=== PATIENT | female | born 1940 | race Caucasian/White ===

== ENCOUNTER 2017-07-18 07:06 | Day surgery (SDC) | payer MEDICARE, BC ==
[~2017-07-18 07:06] MED LIST: BUPIVACAINE HCL 0.75% INJ/PF (7.5 MG/1 ML) 10 ML SDV OS PRN; KETOROLAC TROMETHAMINE 0.45% 4 DROP/0.4 ML DROPERETTE OS PRN; LIDOCAINE 4% INJ/PF (40 MG/ML) 5 ML AMPUL OS PRN
[2017-07-18] MEDS ORDERED: EPINEPHRINE INJ/PF 1 MG/1 ML AMPULE ONE (07:42)
[2017-07-18] MEDS ORDERED: CHONDR SU A NA/HYALUR INTRAOC KIT (SURGICARE) ONE (07:42)
[2017-07-18] MEDS ORDERED: LIDOCAINE 1% INJ-PF (10 MG/ML) 30 ML SDV ONE (07:43)
[2017-07-18] MEDS: CYCLOPENTOLATE 0.2%/PHENYLEPHRINE 1% OPH SOLN 2 ML OS PRN ×3 (07:48→08:08)
[2017-07-18] MEDS: BESIFLOXACIN HCL 0.6% OPH SUSP 5 ML BOTTLE OS PRN ×5 (07:48→09:00)
[2017-07-18] MEDS: TROPICAMIDE 1% OPH SOLN 3 ML OS PRN ×3 (07:48→08:08)
[2017-07-18] MEDS: TETRACAINE HCL 0.5% OPH SOLN 0.6 ML DROPERETTE OS PRN ×2 (07:49→08:08)
[2017-07-18] MEDS ORDERED: MIDAZOLAM 2 MG/2 ML INJ ONE (08:06)
--- NOTE | 2017-07-18 09:10 | [facility] OPERATIVE REPORT E ---
[facility] Operative Report NAME: GABRIELLA SMALLWOOD AGE: 77Y DATE OF SURGERY: 07/18/2017 ROOM: PREOPERATIVE DIAGNOSIS: Cataract, left eye. POSTOPERATIVE DIAGNOSIS: Cataract, left eye. PROCEDURE PERFORMED: Phacoemulsification with posterior chamber intraocular lens, left eye. SURGEON: FATOU FRAUSTO M.D. ANESTHESIA: Topical with MAC. INDICATIONS FOR SURGERY: Difficulty reading small print and seeing TV. Best corrected visual acuity 20/60. PROCEDURE: The patient was brought to the Operating Room and placed on the operative table. Following tetracaine drops, topical anesthesia was administered. This consisted of instrument wipe pledgets soaked in a solution of 4% Xylocaine mixed with 0.75% Marcaine in a 1:2 ratio. A 2 x 1 cm pledget was placed in the superior fornix. A 1 x 1 cm pledget was placed in the inferior fornix. The eye was patched shut for 5 minutes. The patch was removed. The eye was sterilely prepped and draped in the usual manner. Lid speculum was placed in the eye. The pledgets were removed. 4-0 black silk sutures were placed around the superior and the inferior rectus muscles to be used as traction. A conjunctival peritomy was made at the 10 o'clock position. Hemostasis was obtained with bipolar cautery. A posterior limbal groove was created using a crescent knife and dissected anteriorly towards the cornea. A sharp point blade was used to create a paracentesis site at the 2 o'clock position. A 2.4 mm keratome was used to enter the anterior chamber through the groove. Viscoelastic was injected into the anterior chamber. An anterior capsulotomy was performed using Utrata forceps in a capsulorrhexis fashion. Hydrodissection and hydrodelineation were performed. Phacoemulsification was performed in [id number]-zhh-bodpbda technique. A total of 7.12 CDE phaco time was used. Following this, the I/A unit was used to remove residual cortex. Viscoelastic was injected into the capsular bag. Intraocular lens model SN60WF, 23.5 diopters, serial number [id number] was placed in the capsular bag. The I/A unit was used to remove residual viscoelastic. The wound was seen to be watertight under high and low pressure, and no sutures were placed. The intraocular lens was well centered. The pressure was adjusted in the eye to normal pressure. The 4-0 black silk sutures and lid speculum were removed. The eye was shielded after Besivance drops were placed. The patient tolerated the procedure well and was sent to the Recovery Room in good condition. DICTATING PHYSICIAN: FATOU FRAUSTO M.D. [id number] PHY#: [id number] ID: [id number] JOB#: [id number] ACCT: [id number] cc:FATOU FRAUSTO M.D. >
--- NOTE | 2017-07-18 09:13 | [facility] DISCHARGE SUMMARY E ---
[facility] Discharge Summary NAME: GABRIELLA SMALLWOOD AGE: 77Y ADMITTED: 07/18/2017 DISCHARGED: 07/18/2017 HOSPITAL COURSE: The patient is a 77-year-old lady who underwent uneventful cataract extraction with intraocular lens implant left eye on 07/18/2017. She will be discharged to home. She is instructed to resume preoperative medications, take Tylenol as needed for discomfort, to keep her eye shielded, to use Besivance, Durezol, and Ilevro at 3 p.m. and 8 p.m., and to follow up in my office in 1 day. DICTATING PHYSICIAN: FATOU FRAUSTO M.D. [id number] PHY#: [id number] ID: [id number] JOB#: [id number] ACCT: [id number] cc:FATOU FRAUSTO M.D. >
== END 2017-07-18 09:51 | disposition home or self-care (01) ==
LOC: SC 07:06
PROVIDERS: ATTEND Ophthalmology
PROC: 08RK3JZ Replacement of Left Lens with Synthetic Substitute, Percutaneous Approach (ICD-10-PCS; principal; 2017-07-18 08:30)
DX: H25.12 Age-related nuclear cataract, left eye (principal); H25.813 Combined forms of age-related cataract, bilateral; H50.111 Monocular exotropia, right eye; H40.033 Anatomical narrow angle, bilateral; E11.3393 Type 2 diabetes mellitus with moderate nonproliferative diabetic retinopathy without macular edema, bilateral; H52.4 Presbyopia; E78.00 Pure hypercholesterolemia, unspecified; M19.90 Unspecified osteoarthritis, unspecified site; I11.0 Hypertensive heart disease with heart failure; I50.9 Heart failure, unspecified; J44.9 Chronic obstructive pulmonary disease, unspecified; Z79.4 Long term (current) use of insulin; Z87.891 Personal history of nicotine dependence; Z88.0 Allergy status to penicillin; Z79.82 Long term (current) use of aspirin; Z99.81 Dependence on supplemental oxygen; Z95.0 Presence of cardiac pacemaker; Z88.5 Allergy status to narcotic agent; Z85.3 Personal history of malignant neoplasm of breast
CPT/HCPCS: 66984; 82962; V2632; J2250; J3490 ×4; A9270; J0171; 142

== ENCOUNTER 2017-08-15 07:04 | Day surgery (SDC) | payer MEDICARE, BC ==
[~2017-08-15 07:04] MED LIST changes: +BUPIVACAINE HCL 0.75% INJ/PF (7.5 MG/1 ML) 10 ML SDV OD PRN; -BUPIVACAINE HCL 0.75% INJ/PF (7.5 MG/1 ML) 10 ML SDV OS PRN; +KETOROLAC TROMETHAMINE 0.45% 4 DROP/0.4 ML DROPERETTE OD PRN; -KETOROLAC TROMETHAMINE 0.45% 4 DROP/0.4 ML DROPERETTE OS PRN; +LIDOCAINE 4% INJ/PF (40 MG/ML) 5 ML AMPUL OD PRN; -LIDOCAINE 4% INJ/PF (40 MG/ML) 5 ML AMPUL OS PRN
[2017-08-15] MEDS ORDERED: EPINEPHRINE INJ/PF 1 MG/1 ML AMPULE ONE (07:30)
[2017-08-15] MEDS ORDERED: CHONDR SU A NA/HYALUR INTRAOC KIT (SURGICARE) ONE (07:31)
[2017-08-15] MEDS: CYCLOPENTOLATE 0.2%/PHENYLEPHRINE 1% OPH SOLN 2 ML OD PRN ×3 (07:51→08:11)
[2017-08-15] MEDS: TROPICAMIDE 1% OPH SOLN 3 ML OD PRN ×3 (07:51→08:11)
[2017-08-15] MEDS: BESIFLOXACIN HCL 0.6% OPH SUSP 5 ML BOTTLE OD PRN ×3 (07:51→08:59)
[2017-08-15] MEDS: TETRACAINE HCL 0.5% OPH SOLN 0.6 ML DROPERETTE OD PRN ×2 (07:52→08:11)
[2017-08-15] MEDS ORDERED: MIDAZOLAM 2 MG/2 ML INJ ONE (08:12)
[2017-08-15] MEDS ORDERED: FENTANYL CITRATE INJ/PF 100 MCG/2 ML AMPUL ONE (08:12)
--- NOTE | 2017-08-15 09:38 | [facility] OPERATIVE REPORT E ---
[facility] Operative Report NAME: GABRIELLA SMALLWOOD AGE: 77Y DATE OF SURGERY: 08/15/2017 ROOM: PREOPERATIVE DIAGNOSIS: CATARACT, RIGHT EYE. POSTOPERATIVE DIAGNOSIS: CATARACT, RIGHT EYE. OPERATION: Phacoemulsification with posterior chamber intraocular lens, right eye. SURGEON: FATOU FRAUSTO M.D. ANESTHESIA: Topical with MAC. INDICATIONS FOR SURGERY: Narrow anterior chamber angles, best corrected visual acuity 20/400. DESCRIPTION OF PROCEDURE: The patient was brought to the operating room and placed on the operative table. Following tetracaine drops, topical anesthesia was administered. This consisted of instrument wipe pledgets soaked in a solution of 4% Xylocaine mixed with 0.75% Marcaine in a 1:2 ratio. A 2 x 1 cm pledget was placed in the superior fornix. A 1 x 1 cm pledget was placed in the inferior fornix. The eye was patched shut for 5 minutes. The patch was removed. The eye was sterilely prepped and draped in the usual manner. Lid speculum was placed in the eye. The pledgets were removed, 4-0 black silk sutures were placed around the superior and the inferior rectus muscles to be used as traction. A conjunctival peritomy was made at the 10 o'clock position. Hemostasis was obtained with bipolar cautery. A posterior limbal groove was created using a crescent knife and dissected anteriorly towards the cornea. A sharp point blade was used to create a paracentesis site at the 2 o'clock position. A 2.4 mm keratome was used to enter the anterior chamber through the groove. Viscoelastic was injected into the anterior chamber. An anterior capsulotomy was performed using Utrata forceps in a capsulorrhexis fashion. Hydrodissection and hydrodelineation were performed. Phacoemulsification was performed in wflpco-pyh-igtplwj technique. A total of 7.22 CDE of total phaco time was used. Following this, the I/A unit was used to remove residual cortex. Viscoelastic was injected into the capsular bag. Intraocular lens Model SN60WF, 26.5 diopters, serial number [id number], was placed in the capsular bag. The I/A unit was used to remove residual viscoelastic. The wound was seen to be watertight under high and low pressure, and no sutures were placed. The intraocular lens was well centered. The pressure was adjusted in the eye to normal pressure. The 4-0 black silk sutures and lid speculum were removed. The eye was shielded after Besivance drops were placed. The patient tolerated the procedure well and was sent to the recovery room in good condition. DICTATING PHYSICIAN: FATOU FRAUSTO M.D. DICTATING PHYSICIAN: FATOU FRAUSTO M.D. [id number] PHY#: [id number] ID: [id number] JOB#: [id number] ACCT: [id number] cc:FATOU FRAUSTO M.D. >
--- NOTE | 2017-08-15 09:39 | [facility] DISCHARGE SUMMARY E ---
[facility] Discharge Summary NAME: GABRIELLA SMALLWOOD AGE: 77Y ADMITTED: 08/15/2017 DISCHARGED: 08/15/2017 HOSPITAL COURSE: The patient is a 77-year-old who underwent uneventful cataract extraction with intraocular lens implant, right eye, on 08/15/2017. She will be discharged to home. DISCHARGE INSTRUCTIONS: She is instructed to resume preoperative medications; to take Tylenol as needed for discomfort; to keep her eye shielded; to use Besivance, Durezol and Ilevro at 3:00 p.m. and 8:00 p.m.; and to follow up in my office in 1 day. DICTATING PHYSICIAN: FATOU FRAUSTO M.D. [id number] PHY#: [id number] ID: [id number] JOB#: [id number] ACCT: [id number] cc:FATOU FRAUSTO M.D. >
== END 2017-08-15 09:56 | disposition home or self-care (01) ==
LOC: SC 07:04
PROVIDERS: ATTEND Ophthalmology
PROC: 08RJ3JZ Replacement of Right Lens with Synthetic Substitute, Percutaneous Approach (ICD-10-PCS; principal; 2017-08-15 08:30)
DX: H25.811 Combined forms of age-related cataract, right eye (principal); Z96.1 Presence of intraocular lens; H40.031 Anatomical narrow angle, right eye; E11.9 Type 2 diabetes mellitus without complications; E07.9 Disorder of thyroid, unspecified; E66.9 Obesity, unspecified; K21.9 Gastro-esophageal reflux disease without esophagitis; Z79.899 Other long term (current) drug therapy; Z79.4 Long term (current) use of insulin; I25.2 Old myocardial infarction; Z79.82 Long term (current) use of aspirin; Z68.42 Body mass index [BMI] 45.0-49.9, adult; R01.1 Cardiac murmur, unspecified; Z99.81 Dependence on supplemental oxygen
CPT/HCPCS: 66984; 82962; V2632; J2250; J3490 ×3; A9270; J0171; J3010; 142